=== PATIENT | female | born 1990 | race Caucasian/White ===

== ENCOUNTER 2016-12-03 13:00 | Emergency (ER) | payer BC, OTHER ==
[~2016-12-03] VITALS: Ht 162.6 cm; Wt 104.0 kg
--- NOTE | 2016-12-03 13:02 | ERA ---
ER Documentation Chief Complaint Date/Time DATE: 12/03/16 TIME: 13:02 Chief Complaint Suicidal HPI The patient is a 26-year-old female, presenting to the ER because of suicidal ideation after arguing with her mother. She has previously been hospitalized psychiatric hospital for suicidal ideation. He denies auditory, visual hallucination, homicidal ideation. He complains of chronic cluster headache, denies fever, facial pain, neck pain, chest pain, dyspnea, abdominal pain, vomiting, diarrhea, dysuria. Past medical history: Cluster headache, depression, anxiety, asthma ROS All systems reviewed and are negative except as per history of present illness. Medications Home Meds Reported Medications Salmeterol Xinaf/Fluticasone* (Advair*) 250-50 Diskus Inhaler, 1 INH INHALATION BID, #1 INHALER 12/03/16 Albuterol/Ipratropium* (Combivent Respimat*) 20-100 Mcg/Inh - 4 Gm Aer.w.adap, 1 PUFF INHALATION QID, #1 INHALER 12/03/16 Tizanidine Hcl* (Tizanidine Hcl*) 2 Mg Tablet, 2 MG PO DAILY Y for SPASTICITY, TAB 12/03/16 Meloxicam* (Mobic*) 15 Mg Tablet, 15 MG PO QHS, #30 TAB 12/03/16 Methocarbamol* (Robaxin*) 500 Mg Tab, 1000 MG PO Q8, TAB 12/03/16 Dextroamphetamine-Amphetamine (Adderall) 30 Mg Tab, 30 MG PO QAM, TAB 12/03/16 Bupropion Hcl* (Wellbutrin SR*) 200 Mg Tablet.sa, 200 MG PO QAM, TAB.SA 12/03/16 Montelukast Sodium* (Singulair*) 10 Mg Tablet, 10 MG PO QHS, #30 TAB 12/03/16 Sertraline Hcl* (Zoloft*) 100 Mg Tablet, 200 MG PO DAILY, #60 TAB 12/03/16 Allergies Allergies: Coded Allergies: No Known Drug Allergies (Verified Allergy, Unknown, 12/03/16) PMhx/Soc History of Surgery: No Anesthesia Reaction: No Hx Neurological Disorder: No Hx Respiratory Disorders: No Hx Cardiac Disorders: No Hx Psychiatric Problems: No Hx Miscellaneous Medical Probl: No Hx Alcohol Use: No Hx Substance Use: No Hx Tobacco Use: No Physical Exam Vitals Vital Signs Date Time Temp Pulse Resp B/P Pulse Ox O2 Delivery O2 Flow Rate FiO2 12/03/16 13:15 98.1 86 18 123/69 99 Physical Exam Const: No acute distress. Head: Atraumatic. Eyes: Normal Conjunctiva. ENT: Normal External Ears, Nose and Mouth. Neck: Full range of motion. No meningismus. Resp: Clear to auscultation bilaterally. Cardio: Regular rate and rhythm, no murmurs. Abd: Soft, non distended, normal bowel sounds, non tender. Skin: No petechiae or rashes. Back: No midline or flank tenderness. Ext: No cyanosis, or edema. Neur: Awake and alert. No focal deficit Psych: Depression and suicidal Result Diagram: 12/03/16 1325 12/03/16 1325 Results 24 hrs Laboratory Tests Test 12/03/16 13:25 Acetaminophen Level < 10.0ug/ml Alanine Aminotransferase (ALT/SGPT) 25IU/L Albumin 4.3g/dl Albumin/Globulin Ratio 1.16 Alkaline Phosphatase 77IU/L Anion Gap 16 Aspartate Amino Transf (AST/SGOT) 18IU/L Basophils # 0.010^3/ul Basophils % 0.3% Blood Morphology Comment Blood Urea Nitrogen 12mg/dl Calcium Level 9.1mg/dl Carbon Dioxide Level 25mmol/L Chloride Level 105mmol/L Creatinine 0.73mg/dl Direct Bilirubin 0.00mg/dl Eosinophils # 0.110^3/ul Eosinophils % 0.8% Ethyl Alcohol Level < 10.0mg/dl Globulin 3.70g/dl Glucose Level 88mg/dl Hematocrit 36.8% Hemoglobin 12.5g/dl Indirect Bilirubin 0.1mg/dl Lymphocytes # 1.110^3/ul Lymphocytes % 12.5% Mean Corpuscular Hemoglobin 28.9pg Mean Corpuscular Hemoglobin Concent 33.9g/dl Mean Corpuscular Volume 85.0fl Mean Platelet Volume 7.6fl Monocytes # 0.610^3/ul Monocytes % 6.3% Neutrophils # 7.210^3/ul Neutrophils % 80.1% Nucleated Red Blood Cells # 0.010^3/ul Nucleated Red Blood Cells % 0.0/100WBC Platelet Count 82264^3/UL Potassium Level 4.3mmol/L Red Blood Count 4.3210^6/ul Red Cell Distribution Width 14.1% Salicylates Level < 1.0mg/dl Serum HCG, Qualitative NEGATIVE Sodium Level 142mmol/L Total Bilirubin 0.1mg/dl Total Protein 8.0g/dl White Blood Count 9.010^3/ul Procedures/MDM MEDICAL MAKING DECISION: The patient is a 26-year-old female, presenting with acute suicidal ideation, depression The differential diagnoses considered include but are not limited to anxiety attack, panic attack, stress, situational stress, decompensated psychiatric illness Departure Diagnosis: Primary Impression: Suicidal ideation Additional Impression: Depression Condition: Stable Comments She is awaiting for telepsychiatrist evaluation The patient's blood pressure was elevated (>120/80) but appears stable without evidence of hypertension emergency or urgency. The patient was counseled about the risks of hypertension and urged to pursue outpatient monitoring and therapy within a week with their primary care physician. MARLYS JI MD Dec 03, 2016 13:02
[2016-12-03 13:15] VITALS: Ht 162.6 cm; Wt 104.0 kg
[2016-12-03 13:46] LABS: BASOPHILS % 0.3 % (0.0-2.0); EOSINOPHILS # 0.1 10^3/ul (0.0-0.5); EOSINOPHILS % 0.8 % (0.0-7.0); HEMATOCRIT 36.8 % (37.0-47.0); HEMOGLOBIN 12.5 g/dl (12.0-16.0); LYMPHOCYTES # 1.1 10^3/ul (0.8-2.9); LYMPHOCYTES % 12.5 % (15.0-51.0); MEAN CORPUSCULAR HEMOGLOBIN 28.9 pg (29.0-33.0); MEAN CORPUSCULAR HGB CONC 33.9 g/dl (32.0-37.0); MEAN PLATELET VOLUME 7.6 fl (7.4-10.4); MONOCYTE # 0.6 10^3/ul (0.3-0.9); MONOCYTES % 6.3 % (0.0-11.0); NEUTROPHIL # 7.2 10^3/ul (1.6-7.5); NEUTROPHILS % 80.1 % (39.0-77.0); PLATELET COUNT 313 10^3/UL (140-440); RED BLOOD COUNT 4.32 10^6/ul (4.20-5.40); RED CELL DISTRIBUTION WIDTH 14.1 % (11.5-14.5)
[2016-12-03] MEDS ORDERED: MONT10TA21 PO (13:51)
[2016-12-03] MEDS ORDERED: SERT100T PO (13:51)
[2016-12-03] MEDS ORDERED: ADDE30 PO (13:52)
[2016-12-03] MEDS ORDERED: BUPR200T2 PO (13:52)
[2016-12-03 13:53] LABS: CONDITION 1
[2016-12-03] MEDS ORDERED: TIZA2TAB PO (13:53)
[2016-12-03] MEDS ORDERED: METH500T PO (13:53)
[2016-12-03] MEDS ORDERED: IPRA4AER INHALATION (13:53)
[2016-12-03] MEDS ORDERED: MELO-110 PO (13:53)
[2016-12-03 13:56] LABS: ALBUMIN 4.3 g/dl (3.3-4.9); CHLORIDE 105 mmol/L (97-110); SODIUM 142 mmol/L (135-144)
[2016-12-03 13:57] LABS: POTASSIUM 4.3 mmol/L (3.5-5.1)
[2016-12-03] MEDS ORDERED: ADV25050 INHALATION (13:57)
[2016-12-03 13:58] LABS: BILIRUBIN,INDIRECT 0.1 mg/dl (0-1.1); BILIRUBIN,TOTAL 0.1 mg/dl (0.2-1.3); CREATININE 0.73 mg/dl (0.44-1.00)
[2016-12-03 13:59] LABS: ALANINE AMINOTRANSFERASE 25 IU/L (13-69); ALBUMIN/GLOBULIN RATIO 1.16; ALKALINE PHOSPHATASE 77 IU/L (42-121); ANION GAP 16 (8-16); ASPARTATE AMINO TRANSFERASE 18 IU/L (15-46); BLOOD UREA NITROGEN 12 mg/dl (7-20); CALCIUM 9.1 mg/dl (8.4-10.2); CARBON DIOXIDE 25 mmol/L (21-31); GLUCOSE 88 mg/dl (70-220)
[2016-12-03 14:30] LABS: ACETAMINOPHEN < 10.0 ug/ml (10.0-30.0); ETHANOL < 10.0 mg/dl; SALICYLATE < 1.0 mg/dl (5.0-30.0)
[2016-12-03 15:11] LABS: ADD UMIC NO; URINE BILIRUBIN (Dip) NEGATIVE (NEGATIVE); URINE BLOOD (Dip) NEGATIVE (NEGATIVE); URINE COLOR LT. YELLOW (YELLOW); URINE GLUCOSE (Dip) NEGATIVE (NEGATIVE); URINE KETONES (Dip) NEGATIVE (NEGATIVE); URINE LEUKOCYTE ESTERASE (Dip) NEGATIVE (NEGATIVE); URINE NITRITE (Dip) NEGATIVE (NEGATIVE); URINE TOTAL PROTEIN (Dip) NEGATIVE (NEGATIVE); URINE UROBILINOGEN (Dip) 0.2 E.U./dL (0.1-1.0)
[2016-12-03 15:49] LABS: BARBITURATES Negative (NEGATIVE); BENZODIAZEPINES Positive (NEGATIVE); CANNABINOIDS Positive (NEGATIVE); COCAINE Negative (NEGATIVE)
[2016-12-03 15:50] LABS: OPIATES Negative (NEGATIVE)
--- NOTE | 2016-12-03 16:24 | PSY ---
Date/Time of Note Date/Time of Note DATE: 12/03/16 TIME: 16:20 Psychiatric Subjective Eval Consent Pt consented to telemedicine: Yes Subjective Evaluation Patient location: emergency Chief Complaint: BIB RA FROM HOME , WANTS TO HURT HERSELF , ARGUMENT WITH MOM , ALSO C/O MARIE Reason for consult: SI History of present illness 26 YO SINGLE FEMALE bIB [facility] due to SI; in ED pt started yelling "please restrain me or I wll bang my head against the wall" because of the headache. Pt was given her o2 tank and she calmed down. Pt presents with pressured speech , tangential, labile afect. She is on zoloft, wellbutrin, Adderall. Denies to me now si or hi, but yelled about Si an hour ago. Denies ah/vh. Past psychiatric history pt has ahx self-ahrm, last inpt was 2 years ago Hospitalization: Suicidal Attempt(s) Medical history Problems Medical Problems: (1) Asthma Status: Acute (2) Carpal tunnel syndrome Status: Acute (3) Depression Status: Acute (4) Pain Status: Acute (5) Suicidal ideation Status: Acute (6) Yeast infection of the vagina Status: Acute Allergies: Coded Allergies: No Known Drug Allergies (Verified Allergy, Unknown, 12/03/16) Substance Abuse Substance use: No known substance abuse Social History Marital status: single Level of education: college DPA/Conservatorship: No Psychiatric Objective Eval Mental Status Examination: Appearance: Groomed Eye Contact: Good Psychomotor Activity: Agitated Behavior: Cooperative Speech: Pressured AFFECT: Libile Mood: Elevated Though Process: Circumstantial Homicidal: No Laboratory Results Laboratory Tests Test 12/03/16 13:25 12/03/16 14:26 Acetaminophen Level < 10.0ug/ml Alanine Aminotransferase (ALT/SGPT) 25IU/L Albumin 4.3g/dl Albumin/Globulin Ratio 1.16 Alkaline Phosphatase 77IU/L Anion Gap 16 Aspartate Amino Transf (AST/SGOT) 18IU/L Basophils # 0.010^3/ul Basophils % 0.3% Blood Morphology Comment Blood Urea Nitrogen 12mg/dl Calcium Level 9.1mg/dl Carbon Dioxide Level 25mmol/L Chloride Level 105mmol/L Creatinine 0.73mg/dl Direct Bilirubin 0.00mg/dl Eosinophils # 0.110^3/ul Eosinophils % 0.8% Ethyl Alcohol Level < 10.0mg/dl Globulin 3.70g/dl Glucose Level 88mg/dl Hematocrit 36.8% Hemoglobin 12.5g/dl Indirect Bilirubin 0.1mg/dl Lymphocytes # 1.110^3/ul Lymphocytes % 12.5% Mean Corpuscular Hemoglobin 28.9pg Mean Corpuscular Hemoglobin Concent 33.9g/dl Mean Corpuscular Volume 85.0fl Mean Platelet Volume 7.6fl Monocytes # 0.610^3/ul Monocytes % 6.3% Neutrophils # 7.210^3/ul Neutrophils % 80.1% Nucleated Red Blood Cells # 0.010^3/ul Nucleated Red Blood Cells % 0.0/100WBC Platelet Count 54676^3/UL Potassium Level 4.3mmol/L Red Blood Count 4.3210^6/ul Red Cell Distribution Width 14.1% Salicylates Level < 1.0mg/dl Serum HCG, Qualitative NEGATIVE Sodium Level 142mmol/L Total Bilirubin 0.1mg/dl Total Protein 8.0g/dl White Blood Count 9.010^3/ul Urine Amphetamines Screen Positive Urine Barbiturates Negative Urine Benzodiazepines Screen Positive Urine Bilirubin NEGATIVE Urine Cannabinoids Positive Urine Clarity CLEAR Urine Cocaine Screen Negative Urine Color LT. YELLOW Urine Glucose NEGATIVE% Urine Hemoglobin NEGATIVE Urine Ketones NEGATIVE Urine Leukocyte Esterase NEGATIVE Urine Nitrite NEGATIVE Urine Opiates Screen Negative Urine Specific Caroleen 1.020 Urine Total Protein NEGATIVE Urine Urobilinogen 0.2 E.U./dL Urine pH 5.5 Assessment and Plan Assessment/Diagnosis Pearl I: Bipolar I mixed Pearl II: defered Pearl III: as per record Pearl IV: moderate Pearl V: gaf 25 Recommendation/Plan Medication Management continue current meds regime Psychotherapy defer to inpt Pt. Caregiver/Family Education pt to be admitted Follow-up/Disposition 5150 for dts; transfer to inpt psych, CANDACE THEODORE MD Dec 03, 2016 16:24
[2016-12-04 01:16] VITALS: BP 165/65; PULSE 94; RESP 16; TEMP 97.9
== END 2016-12-04 01:17 | disposition home or self-care (01) ==
LOC: E/R 13:00
DX: F32.9 Major depressive disorder, single episode, unspecified (principal); R40.2252 Coma scale, best verbal response, oriented, at arrival to emergency department; R45.851 Suicidal ideations; R40.2362 Coma scale, best motor response, obeys commands, at arrival to emergency department; R40.2142 Coma scale, eyes open, spontaneous, at arrival to emergency department
CPT/HCPCS: 36415; 80053; 80306; 80307; 81003; 84703; 85025; 99285